=== PATIENT | female | born 1960 | race Caucasian/White ===

== ENCOUNTER → 2020-06-13 10:26 | Outpatient (BNVA) | payer SELFPAY | PROVIDERS: PCP Internal Medicine; Visit Provider Internal Medicine | DX: Z76.89 Persons encountering health services in other specified circumstances (principal) ==

== ENCOUNTER 2020-06-16 15:39 | Emergency (ER) | payer OTHER, SELFPAY ==
--- NOTE | 2020-06-16 | CT_ITS ---
EXAMINATION: CT HEAD WITHOUT CONTRAST CT FACIAL BONES WITHOUT CONTRAST CT CERVICAL SPINE WITHOUT CONTRAST CLINICAL INFORMATION: Fall, trauma, pain. COMPARISON: None. TECHNIQUE: Multidetector CT imaging of the head, facial bones and cervical spine was performed without the use of intravenous contrast. Coronal and sagittal reformatted images were generated at the technologist workstation. This CT examination was performed using dose optimization techniques as appropriate, variously including the following: *Automated exposure control *Adjustment of mA and/or kV according to patient size (this includes techniques or standardized protocols for targeted exams where dose is matched to indication/reason for exam; i.e. extremities or head) *Use of iterative reconstruction technique DLP: 1525 mGy-cm. FINDINGS: CT head: There is no evidence of acute intracranial hemorrhage or territorial infarction. No abnormal mass-effect or midline shift is seen. Britton to white matter differentiation is well preserved. No extra-axial fluid collections are identified. The ventricles are normal in size; mild asymmetry of the bodies of the lateral ventricles is within normal limits of variation. There are patchy areas of low-attenuation the periventricular and subcortical white matter. There are calcifications of the vertebral and cavernous internal carotid arteries bilaterally. There are no acute osseous findings. There is hyperostosis frontalis interna. There are no large scalp contusions or hematomas. CT facial bones: There is no acute maxillofacial fracture. The mandible and the mandibular condyles are intact. The pterygoid plates, zygomatic arches and lamina papyracea are intact. The bony orbital rims are intact. The nasal bones are intact. There is a retention cyst in the right maxillary sinus. The other paranasal sinuses appear clear. There is leftward deviation of the nasal septum. The ostiomeatal complexes are clear. The carotid canals are normally covered by bone. There are multiple carious teeth in the bilateral maxilla and left mandible, with multiple small periapical lucencies. The mastoid air cells and visualized middle ear cavities are well-aerated. The intraorbital structures are normal. The TMJs are unremarkable. There is mild soft tissue swelling along the inferior mandible in the midline anteriorly. CT cervical spine: There are mild degenerative anterolistheses of C3 on C4 and C4 on C5. There is a mild levoscoliosis. There are sequelae of ACDF at C6-C7, with an interbody fusion and anterior plate and screws, which appear intact. Vertebral body heights are maintained, and no fractures are demonstrated. There is multilevel facet arthropathy which is most prominent at C3-C4 bilaterally. The lateral masses of C1 and C2 are normally aligned and the dens is intact. The visualized lung apices are well-aerated. There is no cervical lymphadenopathy; there are small lymph nodes at multiple levels in the neck bilaterally. There are atheromatous calcifications at the carotid bifurcations. IMPRESSION: CT head: 1. There are no acute bleeds or territorial infarcts. No fractures or scalp hematomas are demonstrated. 2. There are chronic microvascular ischemic changes. CT maxillofacial: 1. There are no acute fractures. 2. There is mild soft tissue swelling along the inferior mandible in the midline anteriorly; correlate clinically. 3. There are multiple periapical lucencies and there is a right-sided maxillary sinus retention cyst. CT cervical spine: 1. There are no acute fractures or subluxations. 2. There are multilevel spondylitic and facet arthropathic changes.
--- NOTE | 2020-06-16 | XR_ITS ---
EXAMINATION: XR KNEE, RIGHT CLINICAL INFORMATION: Fall. Pain. COMPARISON: None TECHNIQUE: Four views of the right knee. FINDINGS: Bones and soft tissues are normal. No fracture or joint effusion. Alignment is anatomic. Joint spaces are well maintained. There is soft tissue arterial calcification. IMPRESSION: No fracture or dislocation seen. Soft tissue arterial calcification.
[2020-06-16 15:51] VITALS: BP 196/78; PULSE 76; RESP 20; TEMP 37.1; O2SAT 98; BMI 46.2
--- NOTE | 2020-06-16 15:54 | ED.FALL ---
HPI - Fall General Chief Complaint: Fall Stated Complaint: VISION CHANGE HEADACHE Time Seen by Provider: 06/16/20 15:46 Source: patient Mode of arrival: ambulatory Limitations: no limitations History of Present Illness HPI Narrative: 60-year-old female coming from work connection after a mechanical fall. The patient tells me she tripped catching herself with her hands and hitting her right knee and face on the ground. No loss of consciousness. Has had some nausea, headache, face pain, bilateral hand pain, knee pain. Also c/o nausea, no vomiting, no photophobia, some bilateral blurry vision. on aspirin only. complaint: fall Onset (ago): hour(s) Fall from: standing Fall witnessed: no Place fall occurred: work Loss of consciousness: none Prolonged down time: no Symptoms prior to fall: none Context: tripped/slipped Location of injury: head and face Location of injury - extremities: right: thigh and bilateral: hand Severity: mild Associated symptoms (after fall): headache Related Data Allergies Allergy/AdvReac Type Severity Reaction Status Date / Time clotrimazole [From LOTRIMIN] Allergy Unknown RASH Verified 06/16/20 16:43 Review of Systems Review of Systems: Yes all other systems are reviewed and are negative Constitutional: Constitutional: Reports no additional constitutional complaints, Denies body ache(s), Denies chills, Denies fever(s), Reports headache(s) and Denies weakness Eyes: Eyes: Reports no additional eye complaints, Reports blurry vision ( Bilateral, mild) and Denies change in vision ENT: Reports system reviewed and no additional complaints, except as documented, Denies dizziness, Reports headache(s), Denies nasal congestion, Denies nasal discharge and Denies neck pain Cardiovascular: Cardiovascular: Reports no additional cardiovascular complaints, Denies chest pain, Denies leg edema and Denies dyspnea Respiratory: Respiratory: Reports no additional respiratory complaints, Denies cough and Denies dyspnea Gastrointestinal: Gastrointestinal: Reports no additional gastrointestinal complaints, Denies abdominal pain, Denies diarrhea, Reports nausea and Denies vomiting Genitourinary: Genitourinary: Reports no additional female genitourinary complaints and Denies urinary incontinence Musculoskeletal: Musculoskeletal: Reports no additional musculoskeletal complaints, Denies back pain, Reports arthralgias, Denies joint swelling, Denies neck pain, Denies numbness and Denies tingling Integumentary/Breasts: Skin/Breast: Reports system reviewed and no additional complaints, except as docu and Denies rash Neurologic: Reports system reviewed and no additional complaints, except as documented, Denies Abnormal speech present, Denies dizziness, Reports headache(s), Denies numbness, Denies tingling and Denies weakness PMFSH Past Medical History Attestation statement: The following information was validated with the patient. Source: obtained from family and nursing notes reviewed Medical History (Updated 06/16/20 @ 17:19 by Lisset Mauricio) Depressed Diabetes High cholesterol HTN (hypertension) Neuropathy Social History Social History Smoking Status: Never smoker Use of substances other than those prescribed or required for medical reasons: No Advance Directives: No Advance Directives Information Provided: No Physical Exam Vital Signs and I&O and Narrative: Vital Signs and I&O: Vital Signs Temp 98.2 F 06/16/20 17:05 Pulse 75 06/16/20 17:05 Resp 20 06/16/20 17:05 BP 186/78 H 06/16/20 17:05 Pulse Ox 97 06/16/20 17:05 Intake & Output 06/15/20 06/16/20 06/16/20 18:59 06:59 18:59 Weight 133.81 kg Body Mass Index 46.2 Const: General: cooperative, healthy appearing, comfortable and no acute distress Orientation/consciousness: patient oriented x3 Limitations: no limitations HENMT: Other: Abrasion to the bridge of the nose. Mild tenderness and swelling. No septal hematoma. Mild submandibular ecchymosis and swelling with abrasion and tenderness. No trismus. Head: Yes normal to inspection Ears: hearing grossly normal bilaterally General nose exam: Normal external nose present Face and sinus: Yes normal facial exam Mouth: Normal oral and palatal mucosa present Throat: Yes posterior oropharynx normal Eyes: General: appearance normal, both eyes and all related structures Visual Richardson: normal visual richardson by confrontation Alignment and Position: alignment normal Periorbital: periorbital findings normal Eyelids: Yes eyelids normal Conjunctivae: conjunctivae normal Sclerae: sclerae normal Corneas: corneas normal Pupils: Equal, round and reactive pupils present EOM: EOMs intact bilaterally Direct Ophthalmoscopy: normal light reflex Neck: Other: No midline tenderness, step-offs or deformities. Full range of motion. Neck: Yes normal visual inspection Chest: Chest palpation & inspection: normal inspection of the chest Resp: Effort & Inspection: normal respiratory effort Auscultation: clear to auscultation bilaterally Cardio: Rate: regular rate Rhythm: regular rhythm Peripheral pulses: Peripheral pulses 2+ throughout GI: Inspection: Yes normal to inspection Palpation (GI): Soft to palpation and nontender Auscultation: normal bowel sounds Back/Spine/Pelvis: Thoracic/Lumbar Spine: thoracic and lumbar spine normal to inspection Skin: General skin exam: no rashes or lesions noted Neuro: General: patient oriented x3, Normal light touch and pain sensation, no focal motor deficits and normal sensation to monofilament Cranial nerves: Yes CN's II-XII intact bilaterally, Yes Equal, round and reactive pupils present and Yes Bilaterally intact EOM present Cognition (Neuro): normal cognition Speech: No Abnormal speech present Gait exam (Neuro): Normal gait present Motor exam (neuro): 5/5 motor strength present throughout Sensory Exam: Normal double simultaneous stimulation for sensation Extrem: Other: Abrasions to bilateral palmar aspects of the hands with full range of motion. Abrasion to the anterior right knee with mild tenderness over the patella. Full range of motion. No ligamental laxity. No obvious swelling, deformity. General: Yes normal to inspection MDM - Fall MDM Narrative Medical decision making narrative: Patient here with multiple complaints status post mechanical fall. Will need imaging. Tetanus updated. 1714- CT unremarkable. Knee film unremarkable. Multiple abrasions which were cleaned prior to arrival by work connection. Tetanus was updated. Patient has a normal neurological exam with no deficits she was complaining of some intermittent blurry vision but has a normal visual exam. She is tolerating p.o. with no vomiting. I did review head injury care at home. Reviewed worrisome signs and symptoms and when to return to the emergency department. Comfortable with discharge home. Imaging Data Knee x-ray: My impression: unremarkable Radiologist's impression: EXAMINATION: XR KNEE, RIGHT CLINICAL INFORMATION: Fall. Pain. COMPARISON: None TECHNIQUE: Four views of the right knee. FINDINGS: Bones and soft tissues are normal. No fracture or joint effusion. Alignment is anatomic. Joint spaces are well maintained. There is soft tissue arterial calcification. IMPRESSION: No fracture or dislocation seen. Soft tissue arterial calcification. CT head/ cervical /facial: Attestation: I personally reviewed and interpreted this imaging study as follows: My impression: unremarkable Radiologist's impression: EXAMINATION: CT HEAD WITHOUT CONTRAST CT FACIAL BONES WITHOUT CONTRAST CT CERVICAL SPINE WITHOUT CONTRAST CLINICAL INFORMATION: Fall, trauma, pain. COMPARISON: None. TECHNIQUE: Multidetector CT imaging of the head, facial bones and cervical spine was performed without the use of intravenous contrast. Coronal and sagittal reformatted images were generated at the technologist workstation. This CT examination was performed using dose optimization techniques as appropriate, variously including the following: *Automated exposure control *Adjustment of mA and/or kV according to patient size (this includes techniques or standardized protocols for targeted exams where dose is matched to indication/reason for exam; i.e. extremities or head) *Use of iterative reconstruction technique DLP: 1525 mGy-cm. FINDINGS: CT head: There is no evidence of acute intracranial hemorrhage or territorial infarction. No abnormal mass-effect or midline shift is seen. Britton to white matter differentiation is well preserved. No extra-axial fluid collections are identified. The ventricles are normal in size; mild asymmetry of the bodies of the lateral ventricles is within normal limits of variation. There are patchy areas of low-attenuation the periventricular and subcortical white matter. There are calcifications of the vertebral and cavernous internal carotid arteries bilaterally. There are no acute osseous findings. There is hyperostosis frontalis interna. There are no large scalp contusions or hematomas. CT facial bones: There is no acute maxillofacial fracture. The mandible and the mandibular condyles are intact. The pterygoid plates, zygomatic arches and lamina papyracea are intact. The bony orbital rims are intact. The nasal bones are intact. There is a retention cyst in the right maxillary sinus. The other paranasal sinuses appear clear. There is leftward deviation of the nasal septum. The ostiomeatal complexes are clear. The carotid canals are normally covered by bone. There are multiple carious teeth in the bilateral maxilla and left mandible, with multiple small periapical lucencies. The mastoid air cells and visualized middle ear cavities are well-aerated. The intraorbital structures are normal. The TMJs are unremarkable. There is mild soft tissue swelling along the inferior mandible in the midline anteriorly. CT cervical spine: There are mild degenerative anterolistheses of C3 on C4 and C4 on C5. There is a mild levoscoliosis. There are sequelae of ACDF at C6-C7, with an interbody fusion and anterior plate and screws, which appear intact. Vertebral body heights are maintained, and no fractures are demonstrated. There is multilevel facet arthropathy which is most prominent at C3-C4 bilaterally. The lateral masses of C1 and C2 are normally aligned and the dens is intact. The visualized lung apices are well-aerated. There is no cervical lymphadenopathy; there are small lymph nodes at multiple levels in the neck bilaterally. There are atheromatous calcifications at the carotid bifurcations. IMPRESSION: CT head: 1. There are no acute bleeds or territorial infarcts. No fractures or scalp hematomas are demonstrated. 2. There are chronic microvascular ischemic changes. CT maxillofacial: 1. There are no acute fractures. 2. There is mild soft tissue swelling along the inferior mandible in the midline anteriorly; correlate clinically. 3. There are multiple periapical lucencies and there is a right-sided maxillary sinus retention cyst. CT cervical spine: 1. There are no acute fractures or subluxations. 2. There are multilevel spondylitic and facet arthropathic changes. Discharge Plan Discharge Clinical Impression: Abrasion Head injury Qualifiers: Encounter type: initial encounter Qualified Code(s): S09.90XA - Unspecified injury of head, initial encounter Contusion Qualifiers: Encounter type: initial encounter Contusion area: knee Laterality: right Qualified Code(s): S80.01XA - Contusion of right knee, initial encounter Patient Disposition: Home, Self-Care Instructions: Head Injury (ED), Abrasion (ED), Knee Pain (ED) Additional Instructions: limit screen time. Get plenty of rest Apply triple antibiotic ointment to all of your abrasions Follow back up with Work connection at [phone] Referrals: Physician,None [Primary Care Provider] - 2 days Stand Alone Forms: Work/School Release Interventions: ED Discharge Assessment Last Done: 06/16/20 17:23 Discharge Date/Time: 06/16/20 17:24
[2020-06-16 17:05] VITALS: BP 186/78; PULSE 75; RESP 20; TEMP 36.8; O2SAT 97
== END 2020-06-16 17:24 | disposition home or self-care (01) ==
PROVIDERS: Emergency Provider Internal Medicine
DX: S09.90XA Unspecified injury of head, initial encounter (principal); S80.01XA Contusion of right knee, initial encounter; S80.211A Abrasion, right knee, initial encounter; W01.0XXA Fall on same level from slipping, tripping and stumbling without subsequent striking against object, initial encounter; E11.9 Type 2 diabetes mellitus without complications; I10 Essential (primary) hypertension; Y93.9 Activity, unspecified; Y92.238 Other place in hospital as the place of occurrence of the external cause; Y99.0 Civilian activity done for income or pay
CPT/HCPCS: 70450; 70486; 72125; 73564; 90471; 90715; 99284

== ENCOUNTER → 2025-07-14 10:28 | Outpatient (BNVA) | payer OTHER, SELFPAY | PROVIDERS: Visit Provider Physician Assistant | DX: S20.214A Contusion of middle front wall of thorax, initial encounter (principal); S80.02XA Contusion of left knee, initial encounter; W01.0XXA Fall on same level from slipping, tripping and stumbling without subsequent striking against object, initial encounter | CPT/HCPCS: 71101; 99204 ==

== ENCOUNTER → 2025-07-19 08:05 | Outpatient (BNVA) | payer OTHER, SELFPAY | PROVIDERS: Visit Provider Physician Assistant Medical | DX: S20.214A Contusion of middle front wall of thorax, initial encounter (principal); S80.212A Abrasion, left knee, initial encounter; W01.0XXA Fall on same level from slipping, tripping and stumbling without subsequent striking against object, initial encounter; Z02.79 Encounter for issue of other medical certificate | CPT/HCPCS: 99213 ==